=== PATIENT | male | born 1955 | race Caucasian/White ===

== ENCOUNTER 2019-11-19 23:12 | Inpatient (IN) ==
[2019-11-19] MEDS ORDERED: NS 1,000 ML IV ONE (23:19)
[2019-11-19] MEDS ORDERED: SOLU-MEDROL IV ONE (23:19)
[2019-11-19] MEDS ORDERED: NORFLEX IV ONE (23:20)
[2019-11-19] MEDS ORDERED: COLCRYS PO ONE (23:20)
[2019-11-20 00:09] LABS: BASO# 0.02 X1000 (0.0-0.2); BASO% 0.1 % (0.0-0.8); EOS# 0.04 X1000 (0.0-0.7); EOS% 0.3 % (0.0-10.0); HEMATOCRIT 30.7 % (42.0-52.0); HEMOGLOBIN 9.8 g/dL (14.0-18.0); IMM GRAN# 0.03 X1000 (0.0-0.04); IMM GRAN% 0.2 % (0.0-0.5); LYMPH# 0.96 X1000 (1.2-3.4); LYMPH% 6.9 % (20.5-51.1); MCH 26.9 PG (27-31); MCHC 31.9 g/dL (33-37); MCV 84.3 FL (81-99); MONO# 1.26 X1000 (0.11-0.59); MPV 9.2 FL (7.4-10.4); NEUT# 11.67 X1000 (1.4-6.5); NEUT% 83.5 % (42.2-75.2); PLT 409 X1000 (130-400); RBC 3.64 XMIL (4.7-6.1); RDW 14.6 % (11.5-14.5); WBC 13.98 X1000 (4.8-10.8)
[2019-11-20 00:33] LABS: ESTIMATED GFR 41
[2019-11-20 00:46] LABS: AGAP 11; ALBUMIN 3.1 g/dL (3.5-5.0); ALKALINE PHOSPHATASE 94 U/L (32-122); BUN 24 mg/dL (8-22); C REACTIVE PROT QUANT 145.45 mg/L (0.00-5.00); CALCIUM 8.2 mg/dL (8.8-10.2); CHLORIDE 100 mmol/L (98-107); CK TOTAL 65 U/L (24-204); COSMO 278; CREATININE 1.7 mg/dL (0.7-1.2); GLUCOSE 161 mg/dL (70-104); GOT 8 U/L (10-34); GPT < 5 U/L (10-44); MAGNESIUM 1.9 mg/dL (1.5-2.7); POTASSIUM 4.5 mmol/L (3.5-5.1); SODIUM 135 mmol/L (136-145); TCO2 24 mmol/L (25-35); TOTAL BILIRUBIN 0.57 mg/dL (0.20-1.00); TOTAL PROTEIN 6.1 g/dL (6.3-8.3)
[2019-11-20 00:48] LABS: URINE SOURCE CLEAN CATCH
[2019-11-20 01:02] LABS: INR 1.2; PROTIME 15.4 Seconds (11.0-16.0)
[2019-11-20 01:03] LABS: PTT 37.9 Seconds (22.3-41.8)
[2019-11-20 01:03] LABS: BILIRUBIN URINE NEGATIVE (NEGATIVE); BLOOD URINE SMALL (NEGATIVE); COLOR YELLOW; GLUCOSE URINE NEGATIVE (NEGATIVE); KETONE URINE NEGATIVE (NEGATIVE); LEUKOCYTES URINE LARGE (NEGATIVE); NITRITE URINE NEGATIVE (NEGATIVE); PROTEIN URINE TRACE mg/dL (NEGATIVE); SP GRAVITY URINE 1.016; TURBIDITY URINE HAZY (CLEAR); UROBILINOGEN URINE NORMAL (NORMAL)
[2019-11-20 01:04] LABS: UR EPITHELIAL CELLS <10 /HPF (<10); URINE BACTERIA 4+ /HPF; URINE RBC <10 /HPF (<10); URINE WBC TNTC /HPF (<10)
[2019-11-20] MEDS ORDERED: ROCEPHIN 1 GM in NS 50 ML IV ONE (01:10)
--- NOTE | 2019-11-20 01:35 | PROVIDER DOCUMENTATION ---
This chart was entered by Migue Buckner Scribe, acting as scribe for Willard Guzman MD. HPI-General Adult - General Stated Complaint: gout Time Seen by Provider: 11/19/19 23:17 Source: patient, family Allergies/Adverse Reactions: Patient Allergies Allergy/AdvReac Type Severity Reaction Status Date / Time No Known Allergies Allergy Verified 11/19/19 23:57 Home Medications: Home Medication List Medication Instructions Recorded Confirmed Last Taken Type Carbidopa/Levodopa [Sinemet 25/100] 1 ea PO 5XDAY 11/19/19 11/19/19 11/19/19 21:00 History Clonazepam [Klonopin] 1 mg PO QHS 11/19/19 11/19/19 11/18/19 21:00 History Hydrocodone/APAP 5 mg/325 mg 1 ea PO Q4-6H PRN PRN 11/19/19 11/19/19 11/19/19 16:00 History [Steele-5] Methocarbamol 750 mg PO TID PRN 11/19/19 11/19/19 11/19/19 21:00 History - History of Present Illness -Gen Adult Nature of Presenting Problems: Pt is a 64 y/o M who presents to the ED with weakness and not being able to move around as normal not able to get out of bed due to back pain. Pt is schuleded for back surgery from a herniated disc in several days, November 27 at [facility]. reports pt is not getting out of bed due to the back pain and weakness. She say she has noticed some incontinence with frequency of urination. She says she thinks a UTI. She says he has been taking off his gout med due to his renal function which is causing his gout flare out.Pt called Dr Estevez, a friend of his, and he told the pt to come to the ED to be evaluated. His alsor reports a low grade fever. Pt denies URI symptoms. Location of Pain/Injury: reports: back, lower extremity Pain Radiation: reports: no radiation Quality of Pain: reports: aching Severity: reports: moderate, severe Onset/Duration: reports: gradual Timing: reports: getting worse Context/Activities at Onset: reports: none Modifying Factors: improves with: nothing Associated Symptoms: reports: back/neck pain, fever/chills, trouble walking. denies: chest pain, diaphoresis, EENT symptoms, sinus congestion/drainage, shortness of breath Similar Symptoms Previously?: No Recently seen or treated by another doctor?: No Review of Systems - Adult - REVIEW OF SYSTEMS - ADULT Constitutional: reports: fever. denies: chills Eyes: reports: no symptoms reported Ears, Nose, Mouth & Throat: denies: ear pain, sinus problem, throat pain Cardiovascular: denies: chest pain, edema, palpitations Respiratory: denies: cough, dyspnea on exertion, shortness of breath, wheezing Gastrointestinal: denies: abdominal pain, diarrhea, nausea, vomiting Genitourinary: reports: no symptoms reported Musculoskeletal: reports: back pain, joint pain. denies: muscle aches, neck pain Integumentary: denies: hives, itching, other Neurological: denies: dizziness/vertigo, headache/migraines Psychiatric: reports: no symptoms reported Endocrine: reports: no symptoms reported Hematologic/Lymphatic: reports: no symptoms reported Allergic/Immunologic: reports: no symptoms reported All Other Systems: Reviewed and Negative Past History - Adult - PAST MEDICAL HISTORY-ADULT Review of Records: reports: Old Records Reviewed, Nursing Assessment Review, Medications Reviewed Genitourinary: reports: kidney disease Musculoskeletal: reports: neck/back injury (Herinated disc) Neurological: reports: Parkinson's - SOCIAL HISTORY Smoking: non-smoker Substance Use: none/never Living Situation: family Physical Exam-General - PHYSICAL EXAM-ADULT Initial Vital Signs Reviewed: Yes - CONSTITUTIONAL General Appearance: appears well, alert, no apparent distress - EYES Eyes: PERRL/EOMI, pink conjunctivae - HEAD, EARS, NOSE, MOUTH & THROAT HENMT: moist mucous membranes, pharynx normal - NECK Neck: non-tender, full range of motion, supple, normal inspection - RESPIRATORY Respiratory: lungs clear, normal breath sounds, no pleuratic chest pain, no respiratory distress, no accessory muscle use - CARDIOVASCULAR Cardiovascular: normal peripheral pulses - GASTROINTESTINAL (ABDOMEN) Abdominal Exam: non tender, soft - MUSCULOSKELETAL Back Exam: no vertebral tenderness Extremity: no pedal edema, swelling (bilateral hands and feet) - SKIN Integumentary: normal color, normal turgor, warm/dry - NEUROLOGIC Neurologic: grossly normal, no motor/sensory deficits - PSYCHIATRIC Psych/Mental Status: normal mood/affect, normal thought content, normal thought process, oriented x 3 Progress - PLAN OF CARE/RESULTS Result Diagrams: 11/19/19 23:46 11/19/19 23:46 - REASSESSMENT Reassessment #1 Time Reassessed: 01:16 Status: improving (States feels better with meds, but too weak to get up to go to the bathroom on his own. Still seems slightly confused to me.) - EKG 1 Time of EKG reading by physician:: 00:58 EKG Read and Signed by:: Willard Guzman EKG Interpretation (*Must complete 3 of following elements*): Abnormal Rate: 79 Rhythm: NSR [place]: normal - XRAY 1 XRAY Study: Chest Impression: Abnormal XRAY Interpretation: cardiomegaly - CONSULTS/PCP/HOSPITALIST Notification #1 *Consult/PCP/Hospitalist*: Dr Santos Called at [phone], [phone] Time Discussed: 01:35 Consult Disposition: Will see in ED, Admit Departure - Departure Date of Disposition Decision: 11/20/19 Time of Disposition Decision: 01:17 DIAGNOSIS: Generalized muscle weakness, Pyelonephritis, acute, Acute gouty arthropathy, Renal insufficiency syndrome Anemia in chronic kidney disease (CKD) Qualifiers: Chronic kidney disease stage: stage 3 (moderate) Qualified Code(s): N18.3 - Chronic kidney disease, stage 3 (moderate); D63.1 - Anemia in chronic kidney disease Disposition: ADMITTED INPATIENT 09 Certified Medical Emergency: Emergent Condition: Stable Referrals and Follow-Ups: Denton Cervantes MD [Primary Care Provider] - - Critical Care Note This patient required my direct & personal management of CC.: No Attestation - Physician/ DANYA Attestation Patient care was provided by Advanced Practice Provider:: No The physician spent face to face time with patient:: Yes Advanced Practice Provider documentation review:: Supervising physician onsite and consulted in the evaluation and care of this patient. The physician did have a face to face encounter with the patient. This chart was documented by the indicated scribe, (Migue Buckner Scribe) and accurately reflects the services I performed and decisions made by , Willard Guzman MD, as attested by the provider's signature.
[2019-11-20] MEDS ORDERED: NORCO-5 PO PRN (03:04)
[2019-11-20] MEDS ORDERED: ROBAXIN PO PRN (03:04)
--- NOTE | 2019-11-20 04:52 | EKG Report ---
Test Performed on : 11/20/2019 00:58:57 AM Test Reason : weakness Blood Pressure : / mmHG Vent. Rate : 079 BPM Atrial Rate : 079 BPM P-R Int : 150 ms QRS Dur : 092 ms QT Int : 382 ms P-R-T Axes : 056 -07 012 degrees QTc Int : 438 ms Normal sinus rhythm. Possible Left atrial enlargement Borderline ECG No previous ECGs available Unconfirmed Result
[2019-11-20] MEDS ORDERED: TYLENOL PO PRN (05:45)
[2019-11-20] MEDS ORDERED: ZOFRAN IV PRN (05:45)
[2019-11-20] MEDS ORDERED: COLCRYS PO ONE (05:45)
[2019-11-20 06:01] LABS: HEMOGLOBIN A1C 5.8 % (4.8-6.0)
[2019-11-20] MEDS: NS 1,000 ML IV SCH ×2 (06:09→18:56)
--- NOTE | 2019-11-20 06:17 | HISTORY AND PHYSICAL ---
PRIMARY CARE PROVIDER: Denton Cervantes MD. CHIEF COMPLAINT: Weakness and gout. HISTORY OF PRESENT ILLNESS: Mr. Vilchis is a pleasant 64-year-old male who has been having lower back pain. He is about to have an L4-L5 back surgery in the next coming weeks. He came in today more specifically related to weakness and not being able to get out of bed due to back pain. reported that he has not been getting out of back pain and weakness. She noticed some incontinence with frequency of urination. I believe he has not been taking his gout medications related to his renal function. From what I understand, he is around chronic kidney disease stage 3. He started developing a low-grade fever and pain and swelling in his hands and feet related to the gout. In the emergency room, his urine was obtained that showed leukocyte esterase positive urinary tract infection. He clinically had pyelonephritis. He will be admitted for further evaluation and treatment. PAST MEDICAL HISTORY: See HPI. He also has Parkinson's disease. PREVIOUS SURGICAL HISTORY: Knee arthroscopy and ACL repair. SOCIAL HISTORY: Lives with his . No tobacco, alcohol or illicit drugs. FAMILY HISTORY: Mother had lung cancer. Siblings all have arthritis. ALLERGIES: No known drug allergies. HOME MEDICATION: Sinemet 25/100 five times a day, Klonopin 1 mg p.o. at bedtime, [place] 5 mg q.4-6 p.r.n., methocarbamol 750 mg p.o. t.i.d. REVIEW OF SYSTEMS: Fourteen-point review of systems conducted with the patient. Pertinent positives listed above in the HPI. All other systems reviewed and found to be negative. PHYSICAL EXAMINATION: VITAL SIGNS: Temperature 98.1, pulse 82, respirations 18, blood pressure 143/90, oxygen saturation 96% on room air. GENERA: Rufus 64-year-old male lying in the ER stretcher. He is alert and oriented times 3. He is in no acute distress. HEENT: Head is atraumatic, normocephalic. Pupils equal, round, reactive to light. Extraocular eye movement is intact. Sclera is anicteric. Conjunctiva is mildly pale. Oral mucosa is moist. NECK: Supple. No JVD. No thyromegaly. Trachea is midline. No cervical lymphadenopathy. CARDIAC: S1, S2 appreciated. No murmurs, gallops, rubs. LUNGS: Clear to auscultation bilaterally. No rhonchi, wheezes, rales. Symmetric rise and fall with respirations. ABDOMEN: Soft, nondistended, nontender except for in the suprapubic area. Bowel sounds present all 4 quadrants, normoactive. No pulsatile mass. No organomegaly. BACK: CVA tenderness noted bilaterally. He also has vertebral tenderness in the L spine. EXTREMITIES: Localized swelling noted to hands and feet. There is warmth to these areas as well. Tender to palpation. Two-plus pedal pulses. No clubbing, cyanosis. GENITOURINARY: No bladder distention. Patient voids. Otherwise deferred. NEUROLOGICAL: Alert and oriented times 3. No focal motor deficits. Otherwise nonfocal examination. DIAGNOSTIC DATA: Chest x-ray shows cardiomegaly. LABORATORY DATA: WBC 13.98. Hemoglobin 9.8. Hematocrit 30.7. Platelet count 409. Sodium 135. Potassium 4.5. Chloride 100. Carbon dioxide 24. BUN 24. Creatinine 1.7. Glucose 161. C- reactive protein 145. Urine: Leukocyte esterase positive, too numerous to count WBCs, 4-plus bacteria. ASSESSMENT: 1. Pyelonephritis. 2. Urinary tract infection. 3. Chronic back pain. 4. Chronic kidney disease stage 3. 5. Parkinson's. 6. Gout flare. PLAN: Admit patient to the medical floor. We will give Rocephin 1 g IV q.24 hours. He was given Solu-Medrol and colchicine 1.2 mg p.o. in the emergency room. We will give 1 additional 0.6 dose of colchicine and then we will not continue related to his kidney function. He was given some Norflex as well. Continue fluids, [place] and Robaxin for his chronic back pain. We will continue his Parkinson medications. Further recommendation per patient clinical course. Dictated by JESSICA Matthew for Tony Santos MD cc: JESSICA Matthew MD
--- NOTE | 2019-11-20 08:42 | Diag Imaging Result Doc PS360 ---
EXAM: CHEST-PORTABLE INDICATION: Md ordered TECHNIQUE: One view COMPARISON: None. FINDINGS: Inspiration is suboptimal. There are calcified granulomata scattered throughout the right lung and there are calcified right hilar lymph nodes indicating prior granulomatous disease. The lungs are grossly clear, otherwise. There is no discrete pleural fluid collection or pneumothorax. The cardiomediastinal silhouette and central vasculature are grossly unremarkable accounting for magnification from AP technique. IMPRESSION: No evidence of acute pathology by plain radiograph. Electronically signed by Jb Rosales 11/20/2019 8:40 AM
[2019-11-20] MEDS: SINEMET 25/100 PO SCH ×5 (09:07→21:52)
--- NOTE | 2019-11-20 15:01 | PROGRESS NOTE ---
DATE: 11/20/2019 INTERVAL HISTORY: Patient reports significant improvement in back pain and lower extremity weakness. No urinary incontinence was reported. Clarified with patient that previous report of a possible episode of urinary incontinence was when he was trying to go to the bathroom and go quite badly, but his he felt that his Parkinson disease was affecting his mobility and he did not quite make it in time. He denied true incontinence. Afebrile overnight. No new complaints. REVIEW OF SYSTEMS: Twelve point review of systems negative except as per interval history. LABORATORY DATA: Urine culture pending. Blood culture no growth to date. VITALS: T-max 98.3 degrees, pulse 89, respirations 18, blood pressure 157/74, O2 saturation 100% on room air. PHYSICAL EXAMINATION: General: No acute distress. Vitals: As above. HEENT: Normocephalic, atraumatic. Moist mucous membranes. No cervical adenopathy. Cardiovascular: Regular rate and rhythm. No murmurs noted. Pulmonary: Clear to auscultation bilaterally. No wheezing, rales, or rhonchi. Abdomen: Soft, nontender, nondistended. Bowel sounds positive. No CVA tenderness noted currently. Extremities: Peripheral pulses intact. No clubbing or cyanosis. Several joints to the right hand a little bit swollen and tender. Neurologic: Cranial nerves grossly intact. No focal deficits identified. No masked faces or tremor noted. Neurologic: Cranial nerves grossly intact. No focal deficits identified. ASSESSMENT AND PLAN: 1. Possible pyelonephritis. Patient admitted with back pain, thought to have CVA tenderness at that time. Urinalysis suggestive of urinary tract infection versus pyelonephritis. Blood cultures no growth so far. The patient does report significant improvement in back pain and weakness with antibiotics overnight. We will monitor one more day but if he continues to do well, can likely be transitioned to oral antibiotics and discharge home tomorrow. 2. Likely chronic kidney disease 3. The patient is not exactly sure what his baseline is. There is no one in our system, but he thinks that it might have been about 40%, which is essentially what his GFR is now. He has followed with Dr. Fenton in the past. We will hydrate gently and monitor creatinine overnight. But suspect this is his baseline chronic kidney disease 3. 3. Parkinson's disease. Continue home medications. 4. Gout. Given some colchicine on admission with some improvement. He is trying to figure out what his home dose of allopurinol is. If we can find that we can find that we will continue it. Still having some discomfort after the colchicine. We will go ahead and give him a dose of prednisone and see if that helps. 5. Chronic back pain. Continue home Anai.
[2019-11-20] MEDS: PREDNISONE PO SCH (16:49)
[2019-11-20] MEDS: KLONOPIN PO SCH (21:52)
[2019-11-21] MEDS: ROCEPHIN 1 GM in NS 50 ML IV SCH (01:46)
[2019-11-21 07:15] LABS: BASO# 0.01 X1000 (0.0-0.2); BASO% 0.1 % (0.0-0.8); HEMATOCRIT 29.6 % (42.0-52.0); HEMOGLOBIN 9.2 g/dL (14.0-18.0); IMM GRAN# 0.03 X1000 (0.0-0.04); IMM GRAN% 0.2 % (0.0-0.5); LYMPH# 0.94 X1000 (1.2-3.4); LYMPH% 7.8 % (20.5-51.1); MCH 26.4 PG (27-31); MCHC 31.1 g/dL (33-37); MCV 84.8 FL (81-99); MONO# 0.78 X1000 (0.11-0.59); MONO% 6.4 % (1.7-9.3); MPV 9.3 FL (7.4-10.4); NEUT# 10.36 X1000 (1.4-6.5); NEUT% 85.5 % (42.2-75.2); PLT 425 X1000 (130-400); RBC 3.49 XMIL (4.7-6.1); RDW 14.6 % (11.5-14.5); WBC 12.12 X1000 (4.8-10.8)
[2019-11-21 07:34] LABS: CALCIUM 8.4 mg/dL (8.8-10.2); CREATININE 1.8 mg/dL (0.7-1.2); POTASSIUM 4.7 mmol/L (3.5-5.1)
[2019-11-21 08:19] LABS: HYPOCHROM 1+; LYMPHS 10 % (21-51); MONO 2 % (1-9); SEGS 88 % (42-75)
[2019-11-21] MEDS: PREDNISONE PO SCH (08:21)
[2019-11-21] MEDS: SINEMET 25/100 PO SCH ×5 (08:21→21:56)
--- NOTE | 2019-11-21 17:56 | PROGRESS NOTE ---
DATE: 11/21/2019 INTERVAL HISTORY: No acute events overnight. Mr. Vilchis denies any chest pain or shortness of breath. He denies any nausea, vomiting, or abdominal pain. He states his burning with the urination has pretty much resolved. We discussed about his urinalysis, urine infection, gram- negative rods. We also discussed about the possibility of pyelonephritis. We discussed about the possibility of sepsis, pending blood culture results. Review of systems: Negative for dysuria. Negative for urinary incontinence. Positive for resting tremors especially left hand. VITALS: Temperature 98.5 degrees, pulse 73, respiratory rate 22, blood pressure 150/74, saturating 96% on room air. PHYSICAL EXAMINATION: Mr. Vilchis is not in acute distress. Oral cavity is moist. Air entry bilaterally equal. No wheeze, rhonchi, or crackles. S1, S2 normal. No murmur, rub, or gallop. Abdomen: Soft, nontender. He has no abdominal tenderness. No costovertebral angle tenderness. No lower extremity edema. He is alert and oriented x3. LABS: Suggestive of WBC 12,000, hemoglobin 9.2, platelets of 425,000. BUN 32, creatinine 1.8, likely chronic kidney disease stage 3. Urine culture and blood culture reports are pending. ASSESSMENT AND PLAN: 1. Possibly acute pyelonephritis based on the back pain and urinalysis on presentation, though currently does not have any costovertebral angle tenderness. He also has a history of lumbar spinal disease which could be contributing to back pain. At the moment, he is able to go to the bathroom without any support and does not have any urinary incontinence. Continue intravenous ceftriaxone. Follow up final blood culture and urine culture results. 2. Acute gouty arthritis affecting interphalangeal joints, especially of the right hand. Considering his ongoing infection, I am holding prednisone at the moment. I will start him back on his colchicine. He is supposed to be on allopurinol 100-150 mg at home but considering acute attack, I am holding it at the moment. 3. 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 The patient was scheduled to undergo lumbar spinal surgery on 11/24/2019. I counseled him about his ongoing infection and the fact that he would need at least 7 days of antibiotic therapy. Going for an elective surgery may not be an appropriate option and I told him that he should have a discussion with his regular physician and let his neurosurgeon know about it. He agrees to it. 4. History of likely chronic kidney stage 3, Parkinson's disease for which I am going to continue his levodopa/carbidopa and methocarbamol. 5. Disposition. My plan is to monitor the patient inside the hospital for 24 hours as I await final urine culture and blood culture results. Based on that, the patient should be ready for discharge on November 21 on oral antibiotics. Currently, he does not have any signs of spinal cord compression. His sensations are intact in bilateral legs. He is not incontinent of his urine. He is able to go to the bathroom without any help. Plan of care was discussed with Mr. Vilchis. I will call his and keep her updated later in the evening. ADDENDUM: I called Mr. Vilchis's on the phone. I discussed with her about his urine infection, pending urine and blood culture. I discussed with her that Mr. Vilchis should get outpatient evaluation for BPH, urinary retention considering his urine infection which is not so common in men. I also informed her that they should reach out to his primary MD as well as spine surgeon and notify them about the current infection and possibly postpone his lumbar spine surgery if it was elective. I answered all of her questions. Total time spent in his care: 35 minutes. cc: Yasir Salcido MD MTDD
[2019-11-21] MEDS: COLCRYS PO SCH (21:57)
[2019-11-21] MEDS: KLONOPIN PO SCH (21:57)
[2019-11-22] MEDS: ROCEPHIN 1 GM in NS 50 ML IV SCH (01:46)
[2019-11-22] MEDS: SINEMET 25/100 PO SCH ×3 (09:28→14:59)
[2019-11-22] MEDS: COLCRYS PO SCH (09:28)
[2019-11-22 13:21] VITALS: BP 136/75
--- NOTE | 2019-11-22 17:33 | DISCHARGE SUMMARY ---
ADMISSION DATE: 11/20/2019 DISCHARGE DATE: 11/22/2019 DISPOSITION: Home. FOLLOWUP: Dr. Cervantes. CONSULTATION DURING THIS ADMISSION: None. IMAGING STUDIES OF SIGNIFICANCE: A chest x-ray showed no acute pathology. Microbiology data shows urine culture positive for Klebsiella oxytoca. ADMISSION DIAGNOSES: 1. Pyelonephritis. 2. Chronic back pain. 3. Chronic kidney disease. 4. Parkinson's. 5. Gout flare. DIAGNOSES AT THE TIME OF DISCHARGE: 1. Acute pyelonephritis with urine culture positive for Klebsiella oxytoca. 2. Gout arthritis with flare. 3. Chronic back pain secondary to lumbar spinal disease. The patient is pending intervention early next month. 4. Chronic kidney disease stage III. 5. Parkinson's disease. DISCHARGE MEDICATIONS: 1. Klonopin 1 mg p.o. at bedtime. 2. [place]. 3. Methocarbamol 75 mg 3 times per day. 4. Allopurinol 300 mg p.o. at bedtime. 5. Colchicine 0.6 b.i.d. 6. Levofloxacin 500 p.o. daily. PRESENTING COMPLAINT: Weakness and being frozen. HISTORY OF PRESENT COMPLAINT: Mr. Henao is a 64-year-old gentleman with history of Parkinson's's disease and L4-L5 discopathy pending surgical intervention. The patient came in because he said he became extremely weak, was not able to get out of bed, and had a lot of pain. Upon presenting to the emergency room he was evaluated. They thought he had a low-grade temperature. He was subsequently admitted for possible urinary tract infection with pyelonephritis. Mr. Henao was admitted to the medical floor. He was started on IV antibiotics and hydration to which he responded well. Urine culture came back positive for Klebsiella oxytoca which was sensitive to the antibiotics that he was on. He was also found to be in gout flare and was started on colchicine. Throughout the hospital course Mr. Henao continued to show progress progressive improvement. This morning he refers to do well. He thinks he can be discharged. He feels a lot better. He said he has an appointment with his neurosurgeon and he would really want to be discharged today. I think clinically he is stable enough to be discharged. He needs to continue levofloxacin for additional 5 days for the possible pyelonephritis. All the discharge instructions have been discussed with him. He voiced understanding. Of note, Mr. henao was also evaluated by Physical Therapy. After today he was able to do 50 feet full weightbearing with standby assistance. TIME SPENT FOR DISCHARGE: 35 minutes. cc: Lex Chaidez MD
== END 2019-11-22 15:48 | disposition home or self-care (01) | DRG 690 ==
LOC: ED 23:12 → 3N 11-20 05:36 → SUATTDRO 11-20 05:36
PROVIDERS: ATTEND Internal Medicine